=== PATIENT | female | born 1935 | race Caucasian/White ===

== ENCOUNTER 2016-07-25 12:01 | Emergency (ER) | payer MEDICARE ==
[2016-07-25 12:10] VITALS: TEMP 97.8; BMI 22.9
[2016-07-25 12:36] LABS: MPV 9.2 fL (7.4-10.4)
[2016-07-25 12:44] LABS: BLOOD UREA NITROGEN 15 MG/DL (7-17); CALCIUM 9.4 MG/DL (8.4-10.2); CALCULATED OSMOLALITY 270 MOs/Kg (270-290); CHLORIDE 103 mEq/L (98-107); GLUCOSE 180 MG/DL (70-99); SODIUM LEVEL 137 mEq/L (137-146); TOTAL PROTEIN 6.8 G/DL (6.3-8.2)
[2016-07-25 12:47] LABS: PARTIAL THROMB. TIME 22.9 SEC (22-35)
[2016-07-25 13:05] LABS: SEG NEUTROPHIL 63 % (45-76)
--- NOTE | 2016-07-25 14:01 | DIRPT ---
CLINICAL DATA: Left-sided chest pain radiating into the left arm for 4 days. EXAM: PORTABLE CHEST 1 VIEW COMPARISON: 01/20/2015. FINDINGS: 1356 hours. Lordotic positioning. The heart size and mediastinal contours are stable. There are lower lung volumes with mildly increased atelectasis at the right lung base. No edema, confluent airspace opacity or pleural effusion. No acute osseous findings are seen. The subacromial space of the left shoulder is narrowed, suggesting a chronic rotator cuff tear. IMPRESSION: Lower lung volumes with resulting mild right basilar atelectasis. No edema or focal airspace disease. Electronically Signed By: Daniel Vasquez M.D. On: 07/25/2016 13:58
--- NOTE | 2016-07-25 14:52 | EDPRACDOC ---
- General Information Information Source: Patient Mode of Arrival: Car - History of Present Illness Onset: 4 DAYS HPI: PT PRESENTS WITH PERSISTENT LEFT SIDED CHEST PAIN SHARP IN NATURE. SHE HAS A HISTORY OF ATRIAL FIBRILLATION BUT HAS GI HEMORRHAGE WITH ANTICOAGULATION SO IS ON NO MEDICINES FOR THIS. Chest Pain Location: Reports: Left Chest Pain Radiation: Reports: Arm (L) Symptoms Occur: Reports: At Rest Cardiac Risk Factors: Reports: Hypertension Medications within 24 Hours: Reports: None Prehospital Care: Reports: None Pain Description: Reports: Sharp Pain Severity: Moderate Pain Worsens With: Reports: Nothing Pain Improves With: Reports: Nothing Associated Signs and Symptoms: Reports: SOB. Denies: Diaphoretic, Abdominal Pain, Nausea, Vomiting <Nav Cruz - Last Filed: 07/25/16 14:49> <Garth Maria - Last Filed: 07/25/16 17:04> - General Information Chief Complaint: Chest Pain Stated Complaint: CP X 2-3 DAYS HEAVINESS Time Seen by Provider: 07/25/16 14:20 Home Medications: Home Medications Diltiazem HCl [Cardizem Cd] 120 mg PO QHS 07/25/16 Insulin Detemir [Levemir] 15 unit SQ BID 07/25/16 Allergies/Adverse Reactions: Allergies Allergy/AdvReac Type Severity Reaction Status Date / Time codeine Allergy Nausea/Vomi Verified 07/25/16 12:09 ting morphine Allergy Nausea/Vomi Verified 07/25/16 12:09 ting ED Past Medical History - History Reviewed Yes Nurses notes reviewed and agree except as marked - Patient Medical History Cardiac History: Reports: Atrial Fibrillation, Hypertension GI/ History: Reports: Urinary Tract Infection, Kidney Stones Psychological History: Denies: Depression Systemic History: Reports: Anemia, Diabetes. Denies: Cancer Surgical History: Reports: Cholecystectomy, Tonsillectomy/Adnoidectomy, Other ( Toe surgery with pins for hammer toes) - Family Medical History Reports: Hypertension, Cancer, Stroke, Cardiac Disorders - Social Medical History Smoking Status: Never smoker Lives In: Home <Nav Cruz - Last Filed: 07/25/16 14:49> EDM Review of Systems - Review of Systems ROS Negative Except as Marked: Yes All systems reviewed and were negative except as marked Constitutional: Fatigue. negative: Fever Mouth: Stomatitis Cardiovascular: Chest Pain (SHARP LEFT SIDED) <Nav Cruz - Last Filed: 07/25/16 14:49> - Physical Exam Constitutional: Alert Oriented to: Time, Person, Place Last recorded Vital Signs: Last Vital Signs Temp 97.8 F 07/25/16 12:05 Pulse 96 07/25/16 14:44 Resp 20 07/25/16 14:44 BP 143/87 07/25/16 14:44 Pulse Ox 99 07/25/16 14:44 Oxygen Pulse Oxygen Saturation 99 O2 Device Room Air Oxygen Flow Rate Fraction of Inspired Oxygen ( FIO2) - HEENT Head: negative: Deformity, Laceration Eye Exam: negative: Conjunctival Injection, Pale Conjunctiva Oropharynx: negative: Membranes Dry Nose: negative: Congestion, Discharge Neck: negative: Limited ROM - Respiratory/Cardiovascular Respiratory: Normal - CTA. negative: Accessory Muscle Use, Diminished Cardiovascular: Irregular. negative: Bradycardia, Tachycardia - GI Auscultation: Normal Palpation: Normal Tenderness: Non tender - Musculoskeletal Extremities: Pedal Pulse (PALPABLE), Radial Pulse (PALPABLE). negative: Calf Tenderness, Pedal Edema - Integumentary Skin: Warm, Dry. negative: Rash - Neurologic Memory Impaired: Normal Motor Function: Normal Mood Description: Anxious, Appropriate Thought: Coherent Perception: Normal <Nav Cruz - Last Filed: 07/25/16 14:49> - Physical Exam Last recorded Vital Signs: Last Vital Signs Temp 97.8 F 07/25/16 12:05 Pulse 87 07/25/16 16:16 Resp 20 07/25/16 16:16 BP 139/90 07/25/16 16:16 Pulse Ox 93 07/25/16 16:16 Oxygen Pulse Oxygen Saturation 93 O2 Device Room Air Oxygen Flow Rate Fraction of Inspired Oxygen ( FIO2) <Garth Maria - Last Filed: 07/25/16 17:04> ED Chest Pain Exam - Respiratory/Cardiovascular Chest Palpation: negative: Tender, Reproduces Pain <Nav Cruz - Last Filed: 07/25/16 14:49> - Action ASA given in the ED: No - Results 07/25/16 12:15 07/25/16 12:15 WBC 6.7 xk/uL (3.8-10.8) 07/25/16 12:15 RBC 3.41 xM/uL (4.20-5.40) L 07/25/16 12:15 Hgb 13.3 g/dL (12.0-16.0) 07/25/16 12:15 Hct 38.8 % (36-47) 07/25/16 12:15 MCV 114 fL (81-99) H 07/25/16 12:15 MCH 38.8 pg (27-32) H 07/25/16 12:15 MCHC 34.2 g/dl (33-36) 07/25/16 12:15 RDW 15.4 % (11.5-14.5) H 07/25/16 12:15 Plt Count 194 xk/uL (130-400) 07/25/16 12:15 MPV 9.2 fL (7.4-10.4) 07/25/16 12:15 Neut % (Auto) Cancelled 07/25/16 12:15 Lymph % (Auto) Cancelled 07/25/16 12:15 [place] % (Auto) Cancelled 07/25/16 12:15 Eos % (Auto) Cancelled 07/25/16 12:15 Baso % (Auto) Cancelled 07/25/16 12:15 Absolute Neuts (auto) Cancelled 07/25/16 12:15 Absolute Lymphs (auto) Cancelled 07/25/16 12:15 Seg Neuts % (Manual) 63 % (45-76) 07/25/16 12:15 Band Neutrophils % 2 % (0-5) 07/25/16 12:15 Lymphocytes % (Manual) 25 % (17-44) 07/25/16 12:15 Monocytes % (Manual) 6 % (0-10) 07/25/16 12:15 Eosinophils % (Manual) 4 % (0-5) 07/25/16 12:15 Absolute Neutrophils 4.36 xk/uL (1.7-8.2) 07/25/16 12:15 Absolute Lymphocytes 1.68 xk/uL (0.65-4.75) 07/25/16 12:15 Platelet Estimate Norm (NORMAL) 07/25/16 12:15 RBC Morphology 1+ macro 1+ aniso 07/25/16 12:15 RBC Morphology 1+ macro 1+ aniso 07/25/16 12:15 PT 10.4 SEC (9.2-11.2) 07/25/16 12:15 INR 1.0 07/25/16 12:15 APTT 22.9 SEC (22-35) 07/25/16 12:15 Sodium 137 mEq/L (137-146) 07/25/16 12:15 Potassium 4.2 mEq/L (3.5-5.1) 07/25/16 12:15 Chloride 103 mEq/L (98-107) 07/25/16 12:15 Carbon Dioxide 25 mMOL/L (22-33) 07/25/16 12:15 Anion Gap 13 mEq/L (8-16) 07/25/16 12:15 BUN 15 MG/DL (7-17) 07/25/16 12:15 Creatinine 0.80 MG/DL (0.52-1.04) 07/25/16 12:15 Estimated GFR (MDRD) > 60 mL/min (>=60) 07/25/16 12:15 Glucose 180 MG/DL (70-99) H 07/25/16 12:15 Calculated Osmolality 270 MOs/Kg (270-290) 07/25/16 12:15 Calcium 9.4 MG/DL (8.4-10.2) 07/25/16 12:15 Total Bilirubin 1.5 MG/DL (0.2-1.3) H 07/25/16 12:15 AST 27 IU/L (14-36) 07/25/16 12:15 ALT 25 IU/L (9-52) 07/25/16 12:15 Alkaline Phosphatase 107 IU/L (55-165) 07/25/16 12:15 Troponin I < 0.01 ng/mL (<.04) 07/25/16 12:15 Igs-C-Vnttunektcq Pept 439 pg/mL (0-1800) 07/25/16 12:15 Total Protein 6.8 G/DL (6.3-8.2) 07/25/16 12:15 Albumin 4.1 G/DL (3.5-5.0) 07/25/16 12:15 Lab Results 07/25/16 07/25/16 07/25/16 12:15 12:15 12:15 WBC 6.7 RBC 3.41 L Hgb 13.3 Hct 38.8 MCV 114 H MCH 38.8 H MCHC 34.2 RDW 15.4 H Plt Count 194 MPV 9.2 Neut % (Auto) Cancelled Lymph % (Auto) Cancelled [place] % (Auto) Cancelled Eos % (Auto) Cancelled Baso % (Auto) Cancelled Absolute Neuts (auto) Cancelled Absolute Lymphs (auto) Cancelled Seg Neuts % (Manual) 63 Band Neutrophils % 2 Lymphocytes % (Manual) 25 Monocytes % (Manual) 6 Eosinophils % (Manual) 4 Absolute Neutrophils 4.36 Absolute Lymphocytes 1.68 Platelet Estimate Norm RBC Morphology 1+ aniso PT 10.4 INR 1.0 APTT 22.9 Sodium 137 Potassium 4.2 Chloride 103 Carbon Dioxide 25 Anion Gap 13 BUN 15 Creatinine 0.80 Estimated GFR (MDRD) > 60 Glucose 180 H Calculated Osmolality 270 Calcium 9.4 Total Bilirubin 1.5 H AST 27 ALT 25 Alkaline Phosphatase 107 Troponin I < 0.01 Sbe-A-Pwucuakrjlg Pept 439 Total Protein 6.8 Albumin 4.1 Laboratory Results - last 24 hr 07/25/16 07/25/16 07/25/16 12:15 12:15 12:15 WBC 6.7 RBC 3.41 L Hgb 13.3 Hct 38.8 MCV 114 H MCH 38.8 H MCHC 34.2 RDW 15.4 H Plt Count 194 MPV 9.2 Neut % (Auto) Cancelled Lymph % (Auto) Cancelled [place] % (Auto) Cancelled Eos % (Auto) Cancelled Baso % (Auto) Cancelled Absolute Neuts (auto) Cancelled Absolute Lymphs (auto) Cancelled Seg Neuts % (Manual) 63 Band Neutrophils % 2 Lymphocytes % (Manual) 25 Monocytes % (Manual) 6 Eosinophils % (Manual) 4 Absolute Neutrophils 4.36 Absolute Lymphocytes 1.68 Platelet Estimate Norm RBC Morphology 1+ aniso PT 10.4 INR 1.0 APTT 22.9 Sodium 137 Potassium 4.2 Chloride 103 Carbon Dioxide 25 Anion Gap 13 BUN 15 Creatinine 0.80 Estimated GFR (MDRD) > 60 Glucose 180 H Calculated Osmolality 270 Calcium 9.4 Total Bilirubin 1.5 H AST 27 ALT 25 Alkaline Phosphatase 107 Troponin I < 0.01 Prf-S-Tamfcrcxkjy Pept 439 Total Protein 6.8 Albumin 4.1 Laboratory Results 07/25/16 12:15 07/25/16 12:15 - EKG EKG #1 EKG Time: 12:10 -: Yes EKG interpreted by me Rate: bpm: 98 Rhythm: Afib ST: Nonsp <Nav Cruz C - Last Filed: 07/25/16 14:49> - Results 07/25/16 12:15 07/25/16 12:15 WBC 6.7 xk/uL (3.8-10.8) 07/25/16 12:15 RBC 3.41 xM/uL (4.20-5.40) L 07/25/16 12:15 Hgb 13.3 g/dL (12.0-16.0) 07/25/16 12:15 Hct 38.8 % (36-47) 07/25/16 12:15 MCV 114 fL (81-99) H 07/25/16 12:15 MCH 38.8 pg (27-32) H 07/25/16 12:15 MCHC 34.2 g/dl (33-36) 07/25/16 12:15 RDW 15.4 % (11.5-14.5) H 07/25/16 12:15 Plt Count 194 xk/uL (130-400) 07/25/16 12:15 MPV 9.2 fL (7.4-10.4) 07/25/16 12:15 Neut % (Auto) Cancelled 07/25/16 12:15 Lymph % (Auto) Cancelled 07/25/16 12:15 [place] % (Auto) Cancelled 07/25/16 12:15 Eos % (Auto) Cancelled 07/25/16 12:15 Baso % (Auto) Cancelled 07/25/16 12:15 Absolute Neuts (auto) Cancelled 07/25/16 12:15 Absolute Lymphs (auto) Cancelled 07/25/16 12:15 Seg Neuts % (Manual) 63 % (45-76) 07/25/16 12:15 Band Neutrophils % 2 % (0-5) 07/25/16 12:15 Lymphocytes % (Manual) 25 % (17-44) 07/25/16 12:15 Monocytes % (Manual) 6 % (0-10) 07/25/16 12:15 Eosinophils % (Manual) 4 % (0-5) 07/25/16 12:15 Absolute Neutrophils 4.36 xk/uL (1.7-8.2) 07/25/16 12:15 Absolute Lymphocytes 1.68 xk/uL (0.65-4.75) 07/25/16 12:15 Platelet Estimate Norm (NORMAL) 07/25/16 12:15 RBC Morphology 1+ macro 1+ aniso 07/25/16 12:15 RBC Morphology 1+ macro 1+ aniso 07/25/16 12:15 PT 10.4 SEC (9.2-11.2) 07/25/16 12:15 INR 1.0 07/25/16 12:15 APTT 22.9 SEC (22-35) 07/25/16 12:15 Sodium 137 mEq/L (137-146) 07/25/16 12:15 Potassium 4.2 mEq/L (3.5-5.1) 07/25/16 12:15 Chloride 103 mEq/L (98-107) 07/25/16 12:15 Carbon Dioxide 25 mMOL/L (22-33) 07/25/16 12:15 Anion Gap 13 mEq/L (8-16) 07/25/16 12:15 BUN 15 MG/DL (7-17) 07/25/16 12:15 Creatinine 0.80 MG/DL (0.52-1.04) 07/25/16 12:15 Estimated GFR (MDRD) > 60 mL/min (>=60) 07/25/16 12:15 Glucose 180 MG/DL (70-99) H 07/25/16 12:15 Calculated Osmolality 270 MOs/Kg (270-290) 07/25/16 12:15 Calcium 9.4 MG/DL (8.4-10.2) 07/25/16 12:15 Total Bilirubin 1.5 MG/DL (0.2-1.3) H 07/25/16 12:15 AST 27 IU/L (14-36) 07/25/16 12:15 ALT 25 IU/L (9-52) 07/25/16 12:15 Alkaline Phosphatase 107 IU/L (55-165) 07/25/16 12:15 Troponin I < 0.01 ng/mL (<.04) 07/25/16 15:11 Jwm-W-Lraozprdoxl Pept 439 pg/mL (0-1800) 07/25/16 12:15 Total Protein 6.8 G/DL (6.3-8.2) 07/25/16 12:15 Albumin 4.1 G/DL (3.5-5.0) 07/25/16 12:15 Lab Results 07/25/16 07/25/16 07/25/16 15:11 12:15 12:15 WBC 6.7 RBC 3.41 L Hgb 13.3 Hct 38.8 MCV 114 H MCH 38.8 H MCHC 34.2 RDW 15.4 H Plt Count 194 MPV 9.2 Neut % (Auto) Cancelled Lymph % (Auto) Cancelled [place] % (Auto) Cancelled Eos % (Auto) Cancelled Baso % (Auto) Cancelled Absolute Neuts (auto) Cancelled Absolute Lymphs (auto) Cancelled Seg Neuts % (Manual) 63 Band Neutrophils % 2 Lymphocytes % (Manual) 25 Monocytes % (Manual) 6 Eosinophils % (Manual) 4 Absolute Neutrophils 4.36 Absolute Lymphocytes 1.68 Platelet Estimate Norm RBC Morphology 1+ aniso PT 10.4 INR 1.0 APTT 22.9 Sodium Potassium Chloride Carbon Dioxide Anion Gap BUN Creatinine Estimated GFR (MDRD) Glucose Calculated Osmolality Calcium Total Bilirubin AST ALT Alkaline Phosphatase Troponin I < 0.01 Vgz-B-Glwqletvozo Pept Total Protein Albumin 07/25/16 12:15 WBC RBC Hgb Hct MCV MCH MCHC RDW Plt Count MPV Neut % (Auto) Lymph % (Auto) [place] % (Auto) Eos % (Auto) Baso % (Auto) Absolute Neuts (auto) Absolute Lymphs (auto) Seg Neuts % (Manual) Band Neutrophils % Lymphocytes % (Manual) Monocytes % (Manual) Eosinophils % (Manual) Absolute Neutrophils Absolute Lymphocytes Platelet Estimate RBC Morphology PT INR APTT Sodium 137 Potassium 4.2 Chloride 103 Carbon Dioxide 25 Anion Gap 13 BUN 15 Creatinine 0.80 Estimated GFR (MDRD) > 60 Glucose 180 H Calculated Osmolality 270 Calcium 9.4 Total Bilirubin 1.5 H AST 27 ALT 25 Alkaline Phosphatase 107 Troponin I < 0.01 Izz-Q-Nxirvrrcmax Pept 439 Total Protein 6.8 Albumin 4.1 Laboratory Results - last 24 hr 07/25/16 07/25/16 07/25/16 12:15 12:15 12:15 WBC 6.7 RBC 3.41 L Hgb 13.3 Hct 38.8 MCV 114 H MCH 38.8 H MCHC 34.2 RDW 15.4 H Plt Count 194 MPV 9.2 Neut % (Auto) Cancelled Lymph % (Auto) Cancelled [place] % (Auto) Cancelled Eos % (Auto) Cancelled Baso % (Auto) Cancelled Absolute Neuts (auto) Cancelled Absolute Lymphs (auto) Cancelled Seg Neuts % (Manual) 63 Band Neutrophils % 2 Lymphocytes % (Manual) 25 Monocytes % (Manual) 6 Eosinophils % (Manual) 4 Absolute Neutrophils 4.36 Absolute Lymphocytes 1.68 Platelet Estimate Norm RBC Morphology 1+ aniso PT 10.4 INR 1.0 APTT 22.9 Sodium 137 Potassium 4.2 Chloride 103 Carbon Dioxide 25 Anion Gap 13 BUN 15 Creatinine 0.80 Estimated GFR (MDRD) > 60 Glucose 180 H Calculated Osmolality 270 Calcium 9.4 Total Bilirubin 1.5 H AST 27 ALT 25 Alkaline Phosphatase 107 Troponin I < 0.01 Nch-S-Yiuqhazsmsk Pept 439 Total Protein 6.8 Albumin 4.1 07/25/16 15:11 WBC RBC Hgb Hct MCV MCH MCHC RDW Plt Count MPV Neut % (Auto) Lymph % (Auto) [place] % (Auto) Eos % (Auto) Baso % (Auto) Absolute Neuts (auto) Absolute Lymphs (auto) Seg Neuts % (Manual) Band Neutrophils % Lymphocytes % (Manual) Monocytes % (Manual) Eosinophils % (Manual) Absolute Neutrophils Absolute Lymphocytes Platelet Estimate RBC Morphology PT INR APTT Sodium Potassium Chloride Carbon Dioxide Anion Gap BUN Creatinine Estimated GFR (MDRD) Glucose Calculated Osmolality Calcium Total Bilirubin AST ALT Alkaline Phosphatase Troponin I < 0.01 Jdv-N-Hwmsdgdvgxh Pept Total Protein Albumin Laboratory Results 07/25/16 12:15 07/25/16 12:15 <Garth Maria - Last Filed: 07/25/16 17:04> <Nav Cruz - Last Filed: 07/25/16 14:49> Decision Time to Discharge: 17:04 - Departure Disposition: Home Education/Counseling Given To: Patient Education/Counseling Given Regarding: Diagnosis <Garth Maria - Last Filed: 07/25/16 17:04> - Departure Condition: Stable Final Diagnosis: Ascending aortic aneurysm Chest pain Qualifiers: Chest pain type: unspecified Qualified Code(s): R07.9 - Chest pain, unspecified Instructions: Chest Pain (ED) Referrals: Juanjo Yip MD [Primary Care Provider] - One Week Additional Instructions: FOLLOW UP WITH YOUR REGULAR DOCTOR FOR AORTA FOLLOW UP.
[2016-07-25] MEDS ORDERED: Pharmacy Review for Metformin - IV Contrast Given SCH (15:00)
--- NOTE | 2016-07-25 16:49 | DIRPT ---
CLINICAL DATA: Left-sided chest pain radiating into left arm. History of atrial fibrillation. EXAM: CT ANGIOGRAPHY CHEST WITH CONTRAST TECHNIQUE: Multidetector CT imaging of the chest was performed using the standard protocol during bolus administration of intravenous contrast. Multiplanar CT image reconstructions and MIPs were obtained to evaluate the vascular anatomy. CONTRAST: 80 mL Isovue 370 IV COMPARISON: Chest x-ray earlier today. FINDINGS: The pulmonary arteries are very well opacified. There is no evidence of pulmonary embolism. There is aneurysmal dilatation of the ascending thoracic aorta which measures 4.4 cm in greatest diameter. There are some associated calcifications at the level of the aortic valve and aortic annulus. The heart size is within normal limits. No pericardial fluid is seen. Lungs show no evidence of infiltrates or edema. Focal atelectasis present in the posterior left lung. No evidence of nodule or enlarged lymph nodes. The visualized upper abdomen is unremarkable. Bony structures show pectus excavatum deformity. Review of the MIP images confirms the above findings. IMPRESSION: 1. No evidence of pulmonary embolism. 2. Dilated ascending thoracic aorta measuring 4.4 cm in greatest diameter. There may be associated aortic valvular disease and correlation with echocardiography may be helpful. Recommend semi-annual imaging followup by CTA or MRA and referral to cardiothoracic surgery if not already obtained. This recommendation follows 2010 ACCF/AHA/AATS/ACR/ASA/SCA/SCAI/SIR/STS/SVM Guidelines for the Diagnosis and Management of Patients With Thoracic Aortic Disease. Circulation. 2010; 121: [id number] 3. No acute findings in the chest. Focal atelectasis present in the posterior left lung. Electronically Signed By: Damien Mccain M.D. On: 07/25/2016 16:47
[2016-07-25 18:12] VITALS: BP 135/88; PULSE 85
== END 2016-07-25 18:12 | disposition home or self-care (01) ==
LOC: ED 12:01
DX: I71.2 Thoracic aortic aneurysm, without rupture (principal)
CPT/HCPCS: 36415; 71010; 71275; 80053; 83880; 84484; 85007; 85027; 85610; 85730; 93005; 99284; A9698